=== PATIENT | female | born 1930 | race Caucasian/White ===

== ENCOUNTER 2019-03-21 10:40 | Emergency (ER) | payer MEDICARE, BC ==
[~2019-03-21] VITALS: Ht 157.5 cm; Wt 50.0 kg
[~2019-03-21 10:40] MED LIST: BLOOD PRESSURE MED; ESTRACE 1MG1 MG/TAB PO; LOTREL 10 MG-201 CAP PO; MACROBID 1100 MG/CAP PO; PREMARIN0.3 MG PO; SYNTHROID0.05 MG PO; SYNTHROID0.075 MG/T PO; VITAMIN D1000 IU PO
[2019-03-21 10:44] VITALS: TEMP 98.1
[2019-03-21 12:12] LABS: COLLECTION METHOD CATHETER
[2019-03-21 12:17] LABS: MUCOUS Present /lpf; PH 6 (5-8); SQUAMOUS EPITHELIAL None Seen /hpf; URINE APPEARANCE Clear; URINE BACTERIA None Seen /hpf; URINE BILIRUBIN Negative (NEGATIVE); URINE BLOOD 1+ (NEGATIVE); URINE COLOR Yellow; URINE GLUCOSE Negative (NEGATIVE); URINE KETONE Trace (NEGATIVE); URINE LEUKOCYTE ESTERASE Negative (NEGATIVE); URINE NITRATE Negative (NEGATIVE); URINE PROTEIN(semi-quant) Negative (NEGATIVE); URINE RBC 0-2 /hpf; URINE UROBILINOGEN Negative (NEGATIVE)
[2019-03-21 12:57] LABS: BASO # 0.1 (0.0-0.2); BASO % 0.4 % (0.0-2.0); EOS % 0.3 % (0-4.0); GRAN # 11.1 (1.4-6.5); GRAN % 82.8 % (42.2-75.2); HEMOGLOBIN 12.4 g/dl (12.5-16.0); LYMPH # 1.3 (1.2-3.4); LYMPH % 9.9 % (20.0-51.0); MEAN CELL VOLUME 89 fl (80.0-100.0); MEAN CORPUSCULAR HEMOGLOBIN 30 pg (27.0-31.0); MEAN CORPUSCULAR HGB CONC 34 g/dl (33.0-37.0); MEAN PLATELET VOLUME 10.2 fl (7.4-10.4); MONO # 0.8 (0.1-0.6); MONO % 6.1 % (1.7-9.3); PLATELET COUNT 335 K/mm3 (130-400); RED BLOOD COUNT 4.13 M/mm3 (4.10-5.30); REDCELL DISTRIBUTION WIDTH-CV 13.9 % (11.5-14.5)
[2019-03-21 12:58] LABS: HEMATOCRIT 36.6 % (37.0-47.0)
[2019-03-21 13:09] LABS: ALANINE AMINOTRANSFERASE < 6 U/L (9-52); ALBUMIN 4.3 gm/dL (3.5-5.0); ALKALINE PHOSPHATASE 96 U/L (50-136); ANION GAP 12 mmol/L (7-16); AST,SGOT 26 U/L (15-37); BILIRUBIN,TOTAL 0.6 mg/dL (0.0-1.0); BLOOD UREA NITROGEN 16 mg/dL (7-17); C-REACTIVE PROTEIN 0.8 mg/dL (0.0-0.9); CALCIUM 9.3 mg/dL (8.4-10.2); CARBON DIOXIDE 26 mmol/L (22-30); CHLORIDE 100 mmol/L (98-107); CREATININE, serum 0.74 (0.52-1.25); GLUCOSE 116 mg/dL (74-106); POTASSIUM 3.6 mmol/L (3.4-5.0); SODIUM 138 mmol/L (137-145)
[2019-03-21 13:49] VITALS: BP 150/68; PULSE 84
--- NOTE | 2019-03-21 14:24 | NUR ---
RUMA met with the patient and her daughters in the ED to discuss discharge. The pt currently has home health services through [facility]. Due to the pt's injury PT/OT services were ordered. RUMA faxed the referral to Jose at [facility]. There are no additional needs at this time.
== END 2019-03-21 13:49 | disposition home or self-care (01) ==
LOC: COL.ER 10:40
PROVIDERS: Family Medicine
DX: S70.01XA Contusion of right hip, initial encounter (principal); X58.XXXA Exposure to other specified factors, initial encounter

== ENCOUNTER 2019-03-21 15:55 | Inpatient (IN) | payer MEDICARE, BC ==
[~2019-03-21] VITALS: Ht 154.9 cm; Wt 44.2 kg
[2019-03-21 18:41] VITALS: BP 139/56; PULSE 69; TEMP 98.1
[2019-03-21 20:31] VITALS: BP 137/53; PULSE 71; TEMP 98.8
[2019-03-21 21:14] LABS: INR 1.1 (0.8-3.0); PROTHROMBIN TIME 12.3 SECONDS (9.7-12.8)
[2019-03-21 22:57] VITALS: BP 149/62; PULSE 69; TEMP 98.7
[2019-03-22 04:30] VITALS: BP 147/73; PULSE 94; TEMP 98.4
[2019-03-22 06:43] LABS: BASO % 0.4 % (0.0-2.0); EOS # 0.1 (0.0-0.7); GRAN # 8.1 (1.4-6.5); GRAN % 76.5 % (42.2-75.2); HEMOGLOBIN 10.9 g/dl (12.5-16.0); LYMPH # 1.2 (1.2-3.4); LYMPH % 11.3 % (20.0-51.0); MEAN CELL VOLUME 90 fl (80.0-100.0); MEAN CORPUSCULAR HEMOGLOBIN 30 pg (27.0-31.0); MEAN CORPUSCULAR HGB CONC 34 g/dl (33.0-37.0); MEAN PLATELET VOLUME 10.5 fl (7.4-10.4); MONO # 1.1 (0.1-0.6); MONO % 10.3 % (1.7-9.3); PLATELET COUNT 287 K/mm3 (130-400); RED BLOOD COUNT 3.63 M/mm3 (4.10-5.30)
[2019-03-22 06:50] LABS: ALBUMIN 3.6 gm/dL (3.5-5.0); BILIRUBIN,TOTAL 0.6 mg/dL (0.0-1.0); CALCIUM 8.7 mg/dL (8.4-10.2); CREATININE, serum 0.58 (0.52-1.25); POTASSIUM 3.5 mmol/L (3.4-5.0)
[2019-03-22 06:54] LABS: HEMATOCRIT 32.5 % (37.0-47.0)
[2019-03-22 07:09] VITALS: BP 115/58; PULSE 69; TEMP 97.5
[2019-03-22 11:48] VITALS: BP 108/40; PULSE 69; TEMP 98
[2019-03-22 15:57] VITALS: BP 120/57; PULSE 74; TEMP 98.4
[2019-03-22 20:00] VITALS: BP 119/60; PULSE 81; TEMP 99.2
[2019-03-23 04:00] VITALS: BP 136/70; PULSE 76; TEMP 98.3
[2019-03-23 07:58] LABS: BASO % 0.4 % (0.0-2.0); EOS # 0.2 (0.0-0.7); EOS % 2.6 % (0-4.0); GRAN # 5.5 (1.4-6.5); GRAN % 64.6 % (42.2-75.2); HEMOGLOBIN 11.8 g/dl (12.5-16.0); LYMPH # 1.8 (1.2-3.4); LYMPH % 21.3 % (20.0-51.0); MEAN CELL VOLUME 90 fl (80.0-100.0); MEAN CORPUSCULAR HEMOGLOBIN 30 pg (27.0-31.0); MEAN CORPUSCULAR HGB CONC 33 g/dl (33.0-37.0); MEAN PLATELET VOLUME 10.5 fl (7.4-10.4); MONO # 0.9 (0.1-0.6); MONO % 10.9 % (1.7-9.3); PLATELET COUNT 330 K/mm3 (130-400); RED BLOOD COUNT 3.97 M/mm3 (4.10-5.30); REDCELL DISTRIBUTION WIDTH-CV 14.2 % (11.5-14.5)
[2019-03-23 08:07] LABS: HEMATOCRIT 35.7 % (37.0-47.0)
[2019-03-23 08:11] LABS: CALCIUM 8.8 mg/dL (8.4-10.2); CREATININE, serum 0.65 (0.52-1.25); MAGNESIUM 1.6 mg/dL (1.6-2.3); POTASSIUM 3.9 mmol/L (3.4-5.0)
[2019-03-23 08:14] VITALS: BP 142/56; PULSE 75; TEMP 98.1
== END 2019-03-23 10:45 | disposition home health service (06) | DRG 536 ==
LOC: COL.ER 15:55 → SURG 17:42
PROVIDERS: Emergency Medicine; Nurse Practitioner; ADMIT Internal Medicine
DX: S72.111A Displaced fracture of greater trochanter of right femur, initial encounter for closed fracture (principal); I10 Essential (primary) hypertension; E03.9 Hypothyroidism, unspecified; G31.84 Mild cognitive impairment of uncertain or unknown etiology; Z90.710 Acquired absence of both cervix and uterus; Z88.2 Allergy status to sulfonamides; S40.211A Abrasion of right shoulder, initial encounter; W19.XXXA Unspecified fall, initial encounter; Y92.003 Bedroom of unspecified non-institutional (private) residence as the place of occurrence of the external cause
CPT/HCPCS: OP; 99222-AI; 99239; A9284; G0378